=== PATIENT | male | born 1970 | race Caucasian/White ===

== ENCOUNTER 2025-03-10 13:42 | Emergency (ER) | payer SELFPAY ==
[2025-03-10 13:45] VITALS: BP 180/100
--- NOTE | 2025-03-10 15:07 | ED.GENMED ---
History of Present Illness
General
Chief Complaint: Male Genito-Urinary Symptoms
Source: patient
Time Seen by Provider: 03/10/25 14:40
History of Present Illness
History of Present Illness:
This patient is a 54-year-old male who works as a otr van cdl truck driver. He states that he went over a bump on Friday and landed on his testicles. Since that time, he notes discomfort and swelling in the left testicle area. He went to an urgent care and
was referred to an outpatient ultrasound which she had performed yesterday. The results were shared with me by him via his portal. He states that he feels fine with walking, and even when he is driving now if he goes over a small bump no symptoms.
However, if he goes over a larger bump, he has pain in the left testicle area. He denies bruising, difficulty urinating, bleeding, numbness, tingling, fever, chills, abdominal pain, nausea, vomiting, or other complaints. He tried to follow-up
with his doctor today and was referred to the emergency department.
Past History
Past History
ED Past Medical History: NIDDM
Social History
Tobacco: Smoker
Drug: None
Personal:
Employment: Employed
Phy Exam
Physical Exam
Physical Exam:
GENERAL: Alert , in no apparent distress
EYE: pupils equal and reactive
NECK: Supple, no significant adenopathy.
ENT: o/p clr, mmm.
CARDIAC: Regular rate and rhythm .
LUNGS: Clear breath sounds bilaterally, no acute respiratory distress, no wheezes/rales/rhonchi
ABDOMEN: Soft, without focal tenderness, no r/g, no cvat
NEUROLOGICAL: Alert and oriented, no focal neuro deficits
SKIN: Warm and dry, skin intact.
MUSCULOSKELETAL: No edema, well perfused.
PSYCH: Normal and appropriate interaction.
: L testicle enlarged, (mod), no bruising/red/warmth, nl cremasteric, nl penile lesions/discharge.
Course
Vital Signs
Initial and Last Documented VS:
Initial Vital Signs
Temp Pulse Resp BP Pulse Ox
98.8 F 76 16 180/100 98
03/10/25 13:45 03/10/25 13:45 03/10/25 13:45 03/10/25 13:45 03/10/25 13:45
Last Documented Vital Signs
Temp Pulse Resp BP Pulse Ox
98.8 F 76 16 167/86 99
03/10/25 13:45 03/10/25 13:45 03/10/25 13:45 03/10/25 15:29 03/10/25 15:30
*Pulse Oximetry
SaO2: 98
Oxygen Mode of Delivery: Room air
Patient hypoxic: no
*Critical Care Note
Total Time (30-74mins, 75-104mins- exclusive of procedures): Not Applicable
Update Note
Update Note:
Patient presents to the Emergency Department with ____left testicular pain and swelling
Number and Complexity of Problems Addressed at the Encounter
� Chronic conditions affecting care:
� Acute Exacerbation and/or Progression of Chronic Illness:
� Differential Diagnosis includes: But not limited to hydrocele, hematocele, varicocele, epididymitis, testicular torsion, hematoma, etc. etc.
Amount and/or Complexity of Data to be Reviewed and Analyzed
� I performed an independent evaluation of and my interpretation is:
EKG:
CT:
Xrays:
Laboratory Studies:
Other:
� Review of other/old records reveals:
� Clinical information was obtained by an independent historian:
� Prescriptions/Medications Considered but not given:
� Further testing considered but not performed:
Risk of Complications and/or Morbidity or Mortality of Patient Management
� Social determinants of health affecting care:
� Discussion with other providers (PCP, Hospitalists, Consultants, etc):
� Escalation of care including admission/observation vs risk of discharge considered: Patient shared his ultrasound report with me which notes normal flow, no torsion noted. This is consistent with his physical exam in which his
cremasteric reflex is normal bilaterally. Patient does have a large complex hydrocele measuring 5.5 x 3.4 x 6.1 cm with debris and septation noted. Patient states his pain today is actually improved compared to yesterday, and he is most upset that
he has not been able to have a physician interpret these findings with him. Case discussed with urology, Dr. Goldstein, who confirms that this hydrocele is most likely precipitated by the trauma that he suffered on Friday. Treatment is supportive.
Patient should expect that the swelling actually may never resolve. He is agreeable to following the patient up. Recommendation is Advil, ice, supportive care.
ED Attending Note
-
Portions of this chart may have been created with voice recognition software.� Occasional wrong word or��sound alike� substitutions may have occurred due to the inherent limitations of voice recognition software.
Discharge Plan
Departure
Patient Disposition: Home (Routine Discharge)
Date of Disposition: 03/10/25
Time of Disposition: 15:08
Patient with high blood pressure during this ER visit?: Yes
Condition: Good
Discharge Problem:
Hydrocele
Instructions: Hydrocele, BLOOD PRESSURE
Referrals:
Eulogio Dumont MD [Family Provider, Family Practice]
Lennox Goldstein MD [Active, Urology] - Next open appointment
Activity Restrictions/Additional Instructions:
IF YOU DEVELOP INCREASING NEW OR PERSISTENT PAIN, DIFFICULTY URINATING, BLEEDING, FEVER, NEW SWELLING, OR OTHER WORRISOME SIGNS, PLEASE RETURN TO THE ER IMMEDIATELY!
Interventions
Interventions:
*Risk Screen - Suicide Last Done: 03/10/25 13:44
*General Assessment Last Done: 03/10/25 13:44
*Neglect/Abuse Screening Last Done: 03/10/25 13:44
*ED- Fall Risk Assessment Last Done: 03/10/25 15:26
*ED COVID-19 Vaccine History Last Done: 03/10/25 15:26
*Nursing Disposition Last Done: 03/10/25 15:39
ED-Male Genitourinary Assessment Last Done: 03/10/25 15:26
Discharge Date and Time
Discharge Date/Time: 03/10/25 15:40
Print Language: TELUGU
[2025-03-10 15:24] VITALS: BMI 25.6
[2025-03-10 15:29] VITALS: BP 167/86
== END 2025-03-10 15:40 | disposition home or self-care (01) ==
LOC: EMR 13:42
PROVIDERS: EMERGENCY PHYSICIAN Emergency Medicine; FAMILY PHYSICIAN Family Medicine
DX: N50.812 Left testicular pain (principal); N43.3 Hydrocele, unspecified; N50.89 Other specified disorders of the male genital organs; R03.0 Elevated blood-pressure reading, without diagnosis of hypertension; E11.9 Type 2 diabetes mellitus without complications; F17.200 Nicotine dependence, unspecified, uncomplicated
CPT/HCPCS: 99282